=== PATIENT | female | born 1995 | race African-American/Black ===

== ENCOUNTER 2020-10-22 11:09 | Emergency (ER) | payer OTHER ==
[2020-10-22 11:19] VITALS: BP 110/65; PULSE 85; TEMP 97.9; BMI 22.0
[2020-10-22 12:56] LABS: PH,URINE 8.5 (5.0-8.0); URINE APPEARANCE CLEAR; URINE BILIRUBIN NEGATIVE (NEGATIVE); URINE COLOR YELLOW; URINE GLUCOSE (UA) NEGATIVE (NEGATIVE); URINE KETONE TRACE (NEGATIVE); URINE LEUK ESTERASE NEGATIVE (NEGATIVE); URINE NITRITE NEGATIVE (NEGATIVE); URINE PROTEIN TRACE (NEGATIVE); URINE UROBILINOGEN 0.2 mg/dL (0.2-1.0)
[2020-10-22 13:20] LABS: HCG,QUALITATIVE URINE Negative
[2020-10-22 13:46] LABS: BASO % 0.4 % (0-2.0); EOS % 0.3 % (0-4.5); HEMATOCRIT 40.5 % (32.4-45.2); HEMOGLOBIN 13.3 GM/dL (10.7-15.3); LYMPH % 14.5 % (8-40); MCH 29.1 pg (25.7-33.7); MCHC 32.8 g/dl (32.0-36.0); MEAN CELL VOLUME 88.7 fl (80-96); MEAN PLT VOLUME 10.2 fl (7.5-11.1); MONO % 4.8 % (3.8-10.2); PLATELET COUNT 250 K/MM3 (134-434); RBC 4.57 M/mm3 (3.60-5.2); RDW 14.3 % (11.6-15.6); WHITE BLOOD COUNT 8.5 K/mm3 (4.0-10.0)
[2020-10-22 14:13] LABS: CALCIUM 9.2 mg/dL (8.5-10.1)
[2020-10-22 14:14] LABS: ALBUMIN 3.9 g/dl (3.4-5.0); BLOOD UREA NITROGEN 11.1 mg/dL (7-18)
[2020-10-22 14:17] LABS: CREATININE 0.7 mg/dL (0.55-1.3)
[2020-10-22 14:18] LABS: BILIRUBIN,TOTAL 0.4 mg/dL (0.2-1); TOT PROT 8.1 g/dl (6.4-8.2)
== END 2020-10-22 18:58 | disposition home or self-care (01) ==
LOC: JER 11:09
PROC: 3E0333Z Introduction of Anti-inflammatory into Peripheral Vein, Percutaneous Approach (ICD-10-PCS; principal; 2020-10-22)
PROC: 3E0333Z Introduction of Anti-inflammatory into Peripheral Vein, Percutaneous Approach (ICD-10-PCS; 2020-10-22)
PROC: 3E0337Z Introduction of Electrolytic and Water Balance Substance into Peripheral Vein, Percutaneous Approach (ICD-10-PCS; 2020-10-22)
DX: N83.201 Unspecified ovarian cyst, right side (principal)
CPT/HCPCS: 36415; 76830-TC; 76856-TC; 80053; 81003; 84703; 85025; 87086; 99285-25; J0131

== ENCOUNTER 2021-11-10 15:53 | Emergency (ER) | payer OTHER ==
[2021-11-10 16:06] VITALS: BP 124/75; PULSE 82; TEMP 98.6; BMI 24.0
[2021-11-10 17:00] LABS: BASO % 0.8 % (0-2.0); EOS % 2.8 % (0-4.5); HEMATOCRIT 38.2 % (32.4-45.2); HEMOGLOBIN 12.5 GM/dL (10.7-15.3); LYMPH % 38.4 % (8-40); MCH 28.4 pg (25.7-33.7); MCHC 32.6 g/dl (32.0-36.0); MEAN CELL VOLUME 87.3 fl (80-96); MEAN PLT VOLUME 9.3 fl (7.5-11.1); MONO % 5.5 % (3.8-10.2); NEUT % 52.5 % (42.8-82.8); PLATELET COUNT 239 10^3/uL (134-434); RBC 4.38 M/mm3 (3.60-5.2); RDW 15.4 % (11.6-15.6); WHITE BLOOD COUNT 6.1 K/mm3 (4.0-10.0)
[2021-11-10 17:19] LABS: CHLORIDE 106 mmol/L (98-107); SODIUM 139 mmol/L (136-145)
[2021-11-10 17:21] LABS: CALCIUM 9.1 mg/dL (8.5-10.1)
[2021-11-10 17:22] LABS: ALBUMIN 3.8 g/dl (3.4-5.0); ANION GAP 5 MMOL/L (8-16); BLOOD UREA NITROGEN 15.4 mg/dL (7-18); CO2 28 mmol/L (21-32); GLUCOSE,RANDOM 99 mg/dL (74-106)
[2021-11-10 17:25] LABS: SGOT/AST 14 U/L (15-37); SGPT/ALT 17 U/L (13-61)
[2021-11-10 17:26] LABS: BILIRUBIN,TOTAL 0.3 mg/dL (0.2-1); TOT PROT 7.4 g/dl (6.4-8.2)
[2021-11-10 17:28] LABS: ALK PHOS 43 U/L (45-117)
== END 2021-11-10 19:39 | disposition home or self-care (01) ==
LOC: JER 15:53
DX: R07.1 Chest pain on breathing (principal); R07.81 Pleurodynia
CPT/HCPCS: 36415; 71046-TC-FY; 80053; 84484; 84703; 85025; 85379; 93005; 93010; 99285-25

== ENCOUNTER 2021-12-29 10:43 | Emergency (ER) | payer OTHER ==
[2021-12-29 11:20] VITALS: TEMP 98.9; BMI 25.0
[2021-12-29] MEDS ORDERED: IBUPROFEN 400 MG TABLET (FP) PO ONE ×2 (13:04→13:09)
[2021-12-29 13:12] LABS: EPI CELLS 12 /uL (0-25.1); HCG,QUALITATIVE URINE Negative; HYALINE CASTS 1 /uL (0-3.1); URINE APPEARANCE CLEAR; URINE BACTERIA 226 /uL (0-1359); URINE BILIRUBIN NEGATIVE (NEGATIVE); URINE COLOR YELLOW; URINE GLUCOSE (UA) NEGATIVE (NEGATIVE); URINE KETONE NEGATIVE (NEGATIVE); URINE LEUK ESTERASE NEGATIVE (NEGATIVE); URINE NITRITE NEGATIVE (NEGATIVE); URINE PROTEIN TRACE (NEGATIVE); URINE RBC 1377 /uL (0-23.9); URINE UROBILINOGEN 0.2 mg/dL (0.2-1.0); URINE WBC 16 /uL (0-25.8)
[2021-12-29 16:37] LABS: BASO % 0.5 % (0-2.0); EOS % 2.5 % (0-4.5); HEMATOCRIT 37.5 % (32.4-45.2); HEMOGLOBIN 12.6 GM/dL (10.7-15.3); LYMPH % 37.4 % (8-40); MCH 29.2 pg (25.7-33.7); MCHC 33.5 g/dl (32.0-36.0); MEAN CELL VOLUME 87.1 fl (80-96); MEAN PLT VOLUME 9.7 fl (7.5-11.1); MONO % 6.8 % (3.8-10.2); NEUT % 52.8 % (42.8-82.8); PLATELET COUNT 230 10^3/uL (134-434); RDW 15.1 % (11.6-15.6); WHITE BLOOD COUNT 6.1 K/mm3 (4.0-10.0)
[2021-12-29 16:43] LABS: INR 1.09 (0.83-1.09); PROTHROMBIN TIME (PATIENT) 12.5 SEC (9.7-13.0)
[2021-12-29 16:55] LABS: CALCIUM 9.1 mg/dL (8.5-10.1)
[2021-12-29 16:56] VITALS: BP 120/77; PULSE 76
[2021-12-29 16:56] LABS: ALBUMIN 3.8 g/dl (3.4-5.0); BLOOD UREA NITROGEN 12.7 mg/dL (7-18)
[2021-12-29 16:59] LABS: CREATININE 0.7 mg/dL (0.55-1.3)
[2021-12-29 17:00] LABS: BILIRUBIN,TOTAL 0.3 mg/dL (0.2-1); TOT PROT 7.3 g/dl (6.4-8.2)
== END 2021-12-29 17:54 | disposition home or self-care (01) ==
LOC: JER 10:43
DX: R10.2 Pelvic and perineal pain (principal)
CPT/HCPCS: 36415; 74177-TC; 76830-TC; 80053; 81003; 83690; 84703; 85025; 85610; 86850; 86900; 86901; 87086; 87491; 87591; 99285-25; Q9967

== ENCOUNTER 2023-03-11 10:48 | Emergency (ER) | payer BC, OTHER ==
[2023-03-11 10:54] VITALS: BP 123/61; PULSE 88; RESP 18; TEMP 99; BMI 23.9
[2023-03-11] MEDS ORDERED: LORATADINE 10 MG TABLET PO ONE (11:04)
[2023-03-11] MEDS ORDERED: LORATADINE 10 MG TABLET ONE (11:09)
== END 2023-03-11 12:15 | disposition home or self-care (01) ==
LOC: FER 10:48
DX: R05.9 Cough, unspecified (principal); J45.909 Unspecified asthma, uncomplicated; J40 Bronchitis, not specified as acute or chronic; Z20.822 Contact with and (suspected) exposure to COVID-19
CPT/HCPCS: 0241U-QW; 99283-25

== ENCOUNTER 2024-04-05 12:10 | Emergency (ER) | payer BC ==
[2024-04-05] MEDS ORDERED: IBUPROFEN 600 MG TABLET (FP) PO ONE (12:18)
[2024-04-05] MEDS: IBUPROFEN 600 MG TABLET (FP) PO ONE (12:20)
[2024-04-05 12:26] VITALS: BP 129/75; PULSE 96; RESP 18; TEMP 98.5; BMI 26.2
== END 2024-04-05 13:05 | disposition home or self-care (01) ==
LOC: FER 12:10
DX: S93.402A Sprain of unspecified ligament of left ankle, initial encounter (principal); W01.0XXA Fall on same level from slipping, tripping and stumbling without subsequent striking against object, initial encounter
CPT/HCPCS: 73610-TC-LT-FY; 73630-TC-LT; 99283-25

== ENCOUNTER 2024-07-20 13:17 | Emergency (ER) | payer OTHER, BC ==
[2024-07-20 13:32] VITALS: BP 132/97; PULSE 90; RESP 20; TEMP 98.1; BMI 25.1
== END 2024-07-20 14:37 | disposition home or self-care (01) ==
LOC: FER 13:17
PROC: 2W39X1Z Immobilization of Left Upper Extremity using Splint (ICD-10-PCS; principal; 2024-07-20)
DX: M79.602 Pain in left arm (principal)
CPT/HCPCS: 99283-25

== ENCOUNTER 2024-07-24 19:46 | Emergency (ER) | payer OTHER, BC ==
[2024-07-24 19:55] VITALS: BP 141/77; PULSE 112; RESP 20; TEMP 99; BMI 26.2
[2024-07-24] MEDS ORDERED: TOBRAMYCIN 0.3% OPHTH SOLN 5 ML BOTTLE ONE (20:32)
[2024-07-24] MEDS: TOBRAMYCIN 0.3% OPHTH SOLN 5 ML BOTTLE OU ONE (20:37)
[2024-07-24 21:22] LABS: HEMATOCRIT 39.3 % (32.4-45.2); HEMOGLOBIN 12.4 G/dL (10.7-15.3); MCH 27.8 pg (25.7-33.7); MCHC 31.7 g/dl (32.0-36.0); MEAN PLT VOLUME 9.8 fl (7.5-11.1); RBC 4.47 10^6/uL (3.60-5.2); RDW 15.4 % (11.6-15.6); WHITE BLOOD COUNT 7.2 10^3/uL (4.0-10.8)
[2024-07-24 21:25] LABS: PLATELET ESTIMATE ADEQUATE
[2024-07-24 21:32] LABS: ALBUMIN 4.4 g/dl (3.4-5.0); BILIRUBIN,TOTAL 0.4 mg/dl (0.2-1); CALCIUM 9.3 mg/dl (8.5-10.1); CREATININE 0.8 mg/dl (0.6-1.3); PHOSPHOROUS 2.7 (2.5-4.9); POTASSIUM 3.3 mmol/L (3.5-5.1); TOT PROT 7.3 g/dl (6.4-8.2)
[2024-07-24] MEDS: HIV POST EXPOSURE PROPHYLAXIS KIT NR ONE (23:03)
[2024-07-25 00:54] LABS: HIV INTERPRETATION NEGATIVE (NEGATIVE)
== END 2024-07-24 23:03 | disposition home or self-care (01) ==
LOC: FER 19:46
DX: Z77.21 Contact with and (suspected) exposure to potentially hazardous body fluids (principal)
CPT/HCPCS: 36415; 80053; 82465; 82977; 84100; 84703; 85025; 86704; 86803; 87340; 87389; 87517; 99283-25

== ENCOUNTER 2024-08-15 12:56 | Emergency (ER) | payer OTHER, BC ==
[2024-08-15 13:00] VITALS: BP 132/83; PULSE 96; RESP 18; TEMP 98.8; BMI 26.2
[2024-08-15 15:42] LABS: HIV INTERPRETATION NEGATIVE (NEGATIVE)
== END 2024-08-15 13:16 | disposition home or self-care (01) ==
LOC: FER 12:56
DX: Z77.21 Contact with and (suspected) exposure to potentially hazardous body fluids (principal)
CPT/HCPCS: 36415; 86803; 87389; 99283-25